=== PATIENT | female | born 1970 | race African-American/Black ===

== ENCOUNTER 2018-12-21 02:08 | Emergency (ER) | payer MEDICAID ==
[~2018-12-21] VITALS: Ht 167.6 cm; Wt 93.0 kg
[2018-12-21] MEDS ORDERED: DIPHENHYDRAMINE 50MG CAPSULE PO ONE (04:45)
[2018-12-21] MEDS ORDERED: DEXAMETHASONE 10 MG/ML VIAL IM ONE (04:45)
[2018-12-21 05:41] VITALS: BP 150/88
== END 2018-12-21 05:51 | disposition home or self-care (01) ==
LOC: ER 02:08
DX: L23.9 Allergic contact dermatitis, unspecified cause (principal); I10 Essential (primary) hypertension; F17.210 Nicotine dependence, cigarettes, uncomplicated; Z91.010 Allergy to peanuts
CPT/HCPCS: 96372; 99283; J1100; Q0163